=== PATIENT | male | born 1945 | race Caucasian/White ===

== ENCOUNTER 2020-10-16 22:48 | Inpatient (IN) | payer OTHER, SELFPAY ==
[~2020-10-16] VITALS: Ht 177.8 cm; Wt 70.3 kg
[2020-10-16 22:48] VITALS: BP 149/85
--- NOTE | 2020-10-16 22:50 | NUR ---
FARHAT PINA. TAKEN TO BED #7
[2020-10-16] MEDS ORDERED: IBUP-1842 PO (23:04)
[2020-10-16] MEDS ORDERED: OMEP20TC10 PO (23:04)
[2020-10-16] MEDS ORDERED: ATI.5 PO (23:04)
[2020-10-16] MEDS ORDERED: LACT1CAP59 PO (23:04)
[2020-10-16] MEDS ORDERED: KETO10TA2 PO (23:04)
[2020-10-16] MEDS ORDERED: TOR15I PO (23:04)
[2020-10-16] MEDS ORDERED: ACET-8386 PO (23:04)
[2020-10-16] MEDS ORDERED: APIX2.5 PO (23:04)
[2020-10-16] MEDS ORDERED: CEFT1VIA7 IM (23:04)
[2020-10-16] MEDS ORDERED: ROC2I IM (23:04)
[2020-10-16] MEDS ORDERED: ATOR10TA PO (23:04)
--- NOTE | 2020-10-16 23:20 | NUR ---
JACKSON CATHETER IN PLACE SHIP FASTENER. SMALL AMOUNT PUSSY DRAINAGE NOTED IN BAG. F/C D/C'D AND COPIUS AMOUNTS PURULENT DISCHARGE/ URINE PASSED, INCONTINENT. NEW JACKSON INSERTED WITH IMMEDIATE RETURN OF APPROX 500 CC PURULENT URINE RETURNED. PT STATES' "I FEEL BETTER"
--- NOTE | 2020-10-16 23:30 | NUR ---
FELISHA SWAB OBTAINED AND SENT TO LAB WITH UA
--- NOTE | 2020-10-16 23:30 | NUR ---
VERY LARGE DECUBITUS TO COCCYX NOTED WITH PURULENT DRAINAGE. PHOTOS TAKEN. ADDITIONALLY LEFT HEEL NECROTIC, NO SKIN BREAK NOTED, PHOTOS TAKEN
[2020-10-16] MEDS ORDERED: DEXT 5% /NACL 0.9% 1,000 ML IV ONE (23:55)
[2020-10-16] MEDS ORDERED: NACL 0.9% 1,000 ML IV ONE (23:55)
--- NOTE | 2020-10-17 00:06 | NUR ---
EKG PERFORMED AT BEDSIDE. EKG READS SINUS TACHYCARDIA @ 111
[2020-10-17] MEDS ORDERED: cefTRIAXone 1,000 MG VIAL ONE (00:19)
[2020-10-17 00:28] LABS: BASOPHILS % (AUTO) 0.2 % (0.0-2.0); HEMATOCRIT 39.3 % (36-52); HEMOGLOBIN 12.6 g/dL (12.0-18.0); LYMPHOCYTES # (AUTO) 0.6 K/uL (2.0-11.5); LYMPHOCYTES % (AUTO) 2.8 % (20.5-51.1); MEAN CORPUSCULAR HEMOGLOBIN 29 pg (27-31); MEAN CORPUSCULAR HGB CONC 32 g/dL (33-37); MEAN CORPUSCULAR VOLUME 90.3 fL (80-94); MONOCYTES # (AUTO) 1.3 K/uL (0.8-1.0); MONOCYTES % (AUTO) 6.1 % (1.7-9.3); NEUTROPHILS # (AUTO) 19.9 K/uL (1.8-7.7); NEUTROPHILS % (AUTO) 90.9 % (42.2-75.2); PLATELET COUNT (AUTO) 433 K/uL (140-450); RED BLOOD CELL COUNT(AUTO) 4.35 MIL/uL (4.20-6.10); RED CELL DISTRIBUTION WIDTH 16.1 % (11.6-13.7); WHITE BLOOD COUNT (AUTO) 21.9 K/uL (4.8-10.8)
[2020-10-17 00:44] LABS: ALBUMIN 2.6 g/dL (3.4-5.0); ANION GAP 19.5 (8-16); ASPARTATE AMINOTRANSFERASE 23 U/L (15-37); CARBON DIOXIDE 24.4 mmol/L (21-32); CHLORIDE 99 mmol/L (98-107); CREATININE 2.8 mg/dL (0.6-1.3); GLUCOSE 162 mg/dL (74-106); POTASSIUM 5.9 mmol/L (3.5-5.1); SODIUM SERUM 137 mmol/L (136-145); TOTAL BILIRUBIN 0.5 mg/dL (0.0-1.0)
[2020-10-17 00:47] LABS: UREA NITROGEN, BLOOD 78 mg/dL (7-18)
[2020-10-17] MEDS ORDERED: INSULIN REGULAR, HUMAN 100 UNIT/ML VIAL IVP ONE (00:50)
[2020-10-17] MEDS ORDERED: DEXTROSE 50% 50 ML SYR IVP ONE (00:50)
[2020-10-17] MEDS ORDERED: CALCIUM GLUCONATE 10% 1000 MG/10 ML VIAL IVP ONE (00:50)
[2020-10-17] MEDS ORDERED: NACL 0.9% 1,000 ML IV ONE ×2 (00:50)
[2020-10-17 00:52] LABS: APPEARANCE,URINE CLEAR (CLEAR); BILIRUBIN,URINE NEGATIVE (NEGATIVE); BLOOD, URINE 3+ (NEGATIVE); COLOR,URINE YELLOW (YELLOW); LEUKOCYTE ESTERASE ,URINE 3+ (NEGATIVE); NITRITE, URINE POSITIVE (NEGATIVE); PH,URINE >=9.0 (5.0-9.0); UGLUCOSE NEGATIVE (NEGATIVE)
[2020-10-17 01:09] LABS: RBC,URINE 0-5 /HPF (0-5); WBC,URINE TOO MANY TO COUNT /HPF (0-5)
--- NOTE | 2020-10-17 02:00 | NUR ---
IS AWAKE , ALERT, WATER GIVEN AND ASSISTED WITH POSITIONING
[2020-10-17] MEDS ORDERED: ACETAMINOPHEN EXTRA STRENGTH 500 MG TAB PO ONE (02:05)
[2020-10-17] MEDS: NACL 0.9% 1,000 ML IV SCH ×3 (03:00→23:00)
--- NOTE | 2020-10-17 04:15 | NUR ---
REPORT CALLED TO ARNOL GALVEZ
--- NOTE | 2020-10-17 04:50 | NUR ---
RECEIVED REPORT FROM ER NURSE FOR CONTINUITY OF CARE. PT ARRIVED TO UNIT VIA GURNEY. PT IS AWAKE AND ALERT, A&OX4. ON 4L O2 NC WITH BREATHING UNLABORED. O2 SAT IS 98%. VS STABLE. SR ON TELE MONITORING. JACKSON CATHETER IN PLACE WITH CLEAR STRAW COLOR URINE PRESENT. BEDBOUND, GENERALIZED WEAKNESS. SKIN IS WARM AND DRY. WOUND ON LEFT HEEL, NECROTIC TISSUE. WOUND ON SACRAL REGION WITH OPTIFOAM IN PLACE. IV IS IN THE LEFT FOREARM 22 GAUGE AND RIGHT WRIST 20 GAUGE RUNNING NS AT 100 ML PER HOUR PER ORDER. RAPID COVID NEGATIVE. PLAN OF CARE DISCUSSED. PT IS STABLE AT THIS TIME. WILL CONTINUE TO MONITOR. FALL PRECAUTIONS IN PLACE.
--- NOTE | 2020-10-17 04:50 | NUR ---
TRANSFERED TO [facility]IA [facility], ATTACHED TO TRANSPORT MONITOR.
[2020-10-17 04:53] VITALS: BP 96/60
--- NOTE | 2020-10-17 06:10 | NUR ---
MESSAGED DR. BURGESS TO ASK HIM FOR THE PT'S DIET ORDER AND CODE STATUS. ALSO INFORMED HIM THAT POTASSIUM LAB HAS NOT BEEN DRAWN SINCE THE PT WAS GIVEN MEDICATION TO LOWER POTASSIUM. WILL WAIT FOR RESPONSE.
--- NOTE | 2020-10-17 06:45 | NUR ---
DR. BURGESS RESPONDED TO MESSAGE AND ORDERED BMP, ROUTINE THIS AM.
--- NOTE | 2020-10-17 07:05 | NUR ---
ENDORSED PT TO DAY SHIFT NURSE FOR CONTINUITY OF CARE. PT IS STABLE AT THIS TIME. PLAN OF CARE DISCUSSED.
--- NOTE | 2020-10-17 07:10 | NUR ---
RECEIVED BEDSIDE ENDORSEMENT FROM NIGHTSMTFT NURSE FOR CONTINUITY OF CARE.
[2020-10-17 07:51] LABS: ANION GAP 11.2 (8-16); CARBON DIOXIDE 27.4 mmol/L (21-32); CHLORIDE 104 mmol/L (98-107); CREATININE 2.4 mg/dL (0.6-1.3); GLUCOSE 146 mg/dL (74-106); POTASSIUM 4.6 mmol/L (3.5-5.1); SODIUM SERUM 138 mmol/L (136-145)
[2020-10-17 07:56] LABS: UREA NITROGEN, BLOOD 77 mg/dL (7-18)
[2020-10-17 08:00] VITALS: BP 116/70
[2020-10-17] MEDS ORDERED: POTASSIUM CHLORIDE 40 MEQ, LIDOCAINE MPF 1% 25 MG in NACL 0.9% 250 ML IV PRN (08:15)
[2020-10-17] MEDS ORDERED: ZOLPIDEM 5 MG TAB PO PRN (08:15)
[2020-10-17] MEDS ORDERED: ONDANSETRON 4 MG/2 ML VIAL IM/IVP PRN (08:15)
[2020-10-17] MEDS ORDERED: guaiFENesin DM 200/20 MG-10 ML 10 ML UDC PO PRN (08:15)
[2020-10-17] MEDS ORDERED: DOCUSATE SODIUM 100 MG GELCAP PO PRN (08:15)
[2020-10-17] MEDS ORDERED: ACETAMINOPHEN 325 MG TAB PO PRN (08:15)
--- NOTE | 2020-10-17 08:58 | NUR ---
FNS CONSULT RECEIVED FOR WOUNDS/PRESSURE INJURIES AND FNS REFERRAL RECEIVED FOR REFUSE TO EAT >3 DAYS, DYSPHAIGA, AND PRESSURE INJURY. PATIENT HAS BEEN SCREENED AND CATEGORIZED HIGH NUTRITION RISK. PATIENT WILL BE SEEN WITHIN 1-2 DAYS OF ADMISSION. 10/17/20-10/18/[address]
[2020-10-17 09:07] LABS: PROTHROMBIN TIME 10.9 secs (10.8-13.4)
[2020-10-17] MEDS ORDERED: CRUSHER, PILL MC ONE (09:09)
[2020-10-17] MEDS: PANTOPRAZOLE 40 MG TABEC PO SCH (09:13)
[2020-10-17] MEDS: APIXABAN 2.5 MG TAB PO SCH ×2 (09:13→21:24)
[2020-10-17] MEDS: DEXT 5% /NACL 0.9% 1,000 ML IV SCH ×2 (09:13→17:30)
[2020-10-17 09:18] LABS: CHOL/HDL RATIO 3.9 (1-4.5); FREE T4 (FREE THYROXINE) 1.4 ng/dL (0.76-1.46); MAGNESIUM 2.5 mg/dL (1.8-2.4); PHOSPHORUS 5.6 mg/dL (2.5-4.9); THYROID STIMULATING HORMONE 1.99 uIU/mL (0.34-3.74)
--- NOTE | 2020-10-17 09:54 | NUR ---
SOCIAL WORK NOTE: Patient's Orientation Unable To Assess Information Provided By RUTH ANN DESHPANDE - SIGNIFICANT OTHER/POA Comments SW WAS UNABLE TO MEET PATIENT AT BEDSIDE. SW COMPLETED ASSESSMENT WITH PATIENT'S SIGNIFICANT OTHER. PER RUTH ANN, PATIENT LIVES AT [facility] [address]. Speech Pathologist Assistant, Realtionship and Phone Number RUTH ANN CHARLEE SIGNIFICANT OTHER/POA [phone] Healthcare Power of Retort Feeder Ground Bone Yes Does Patient Have a POLST No Identifying Problems No Social Work Triggers Is A Social Work Consult Needed No Mandate Report Filed No Explanation Of Identifying Problems PATIENT IS A 75-YEAR-OLD MALE ADMITTED FOR HYPERKALEMIA AND FAILURE TO THRIVE. PATIENT HAS PMHX OF BPH, GW, AND ANXIETY. PATIENT WAS ADMITTED FROM [facility]. [facility] Pre-Admission Level Of Functioning Status Independent/Ambulatory Level Of Functioning Comment RUTH ANN STATED PATIENT IS INDEPENDENT AT BASELINE. Prior Resources/Services Used In Last 12 Months SNF Rehab/Skilled Prior Resources/Service Comments PATIENT IS SKILLED. Prior DME No Prior DME Used Dialysis Comments N/A Living Situation Lives W/Significant Other Patient Had Caregiver No Home Support No Caregiver Issues Financial Issues No Known Financial Issue Referral To The Financial Counselor Needed No Factors/Needs No D/C Needs Identified Pt/Rep Participated In Discharge Plan Yes Patient/Family Agress With Discharge Plan Yes Discharge Plan Comments TENTATIVE DISCHARGE PLAN IS FOR PATIENT TO RETURN HOME AFTER DISCHARGE. DC Plan Status Initiated
--- NOTE | 2020-10-17 10:45 | NUR ---
WOUND CARE EVALUATION NOTE: SKIN ASSESSMENT DONE ON THIS 75 Y/O PT. ADMITTED WITH INFECTED PRESSURE INJURY WOUND TO SACRALCOCCYX AND LEFT HEEL UN-STAGEABLE PRESSURE INJURY. PT. IS AWAKE,AAX3. C/O PAIN 3/10 WHILE TURNING AND REPOSITION, NON-SPECIFIC LOCATION. PT. SKIN WARM AND DRY. POOR SKIN TURGOR, UPPER AND LOWER EXTREMITIES MULTIPLE DRY SCABS, INCONTINENT OF BOWEL X1 DURING ASSESSMENT. F/C PATENT, POC DISCUSSED WITH PRIMARY RN AND PT. PT. VERBALIZES UNDERSTANDING. POC DISCUSSED WITH DR. BURGESS AND RECOMMEND SURGEON CONSULT AND DEBRIDEMENT. COMORBIDITIES RELATED TO DELAY WOUND HEALING, FURTHER SKIN BREAKS INFECTION, HYPOXEMIC DECREASE TISSUE PERFUSION, DECREASE MOBILITY AND FUNCTIONAL ABILITIES AND HOB ELEVATED THE MAJORITY OF TIMES DUE TO MEDICAL REASONS. INTEGUMENTARY: -INFECTED PRESSURE INJURY UN-STAGEABLE TO SACRALCOCCYX [id number] WOUND 100% BROWN SLOUGH TISSUE, MODERATE AMOUNT PURULENT DRAINAGE, FOUL ODOR, WOUND EDGE FLAT, ERENDIRA WOUND SKIN DTI AND TOWARD 1 OCLOCK DIRECTION ERENDIRA-WOUND 1.5X1CM DRY BROWN WOUND BED. ERENDIRA WOUND DTI FURTHER DAMAGE INDICATED. -PRESSURE INJURY UN-STAGEABLE LEFT MEDIAL HEEL 2X3 CM DARK BROWN MUSHY SKIN. LEFT LATERAL HEEL 3X3CM 100% BLACK STABLE NECROTIC TISSUE, ERENDIRA-WOUND SKIN DRY DTI IRREGULAR SHAPE FURTHER DAMAGE INDICATED RECOMMENDATIONS -CLEANSE SACRALCOCCYX WOUND WITH NS, PAT DRY, PACK WITH SILVER ALGINATE DRESSING AND COVER WITH DRY DRESSING OD AND PRN IF SOILING - CLEANSE LEFT MEDIAL AND LATERAL HEEL WOUND WITH NS, PAT DRY, APPLY SOAKED BETADINE SO. 4X4 GAUZES AND WRAP WITH KERLIX ROLLS QD AND PRN IF SOILING -APPLY HYDRAGUADR TO UPPER AND LOWER EXTREMITIES BID AND PRN IF SOILING -TURN AND REPOSITION PATIENT Q 2H -ASSESS AND MONITOR SKIN CONDITION DURING POSITION CHANGE -OFFLOAD BILATERAL HEELS BY PLACING PILLOWS UNDER CALVES AT ALL TIMES, UNLESS OTHERWISE CONTRAINDICATED -PRESSURE REDISTRIBUTION SURFACE THERAPY -KEEP SKIN CLEAN AND DRY AT ALL TIMES. PLEASE CONTACT WOUND CARE NURSE FOR ANY QUESTION AND CHANGE OF WOUND CONDITION.
--- NOTE | 2020-10-17 11:48 | NUR ---
HOURLY ROUNDING PERFORMED. PATIENT IS RESTING IN BED. VISIBLE RISE AND FALL OF CHEST NOTED. NO SIGNS OF DISTRESS OR DISCOMFORT. SAFETY MEASURES IN PLACE. WILL CONTINUE TO MONITOR.
--- NOTE | 2020-10-17 11:53 | NUR ---
RECOMMENDATIONS FOR MULTIVITAMIN AND VITAMIN C [address] BURGESS[address] RECEIVED VORB FOR MULTIVITAMIN AND VITAMIN C.
[2020-10-17 12:00] VITALS: BP 134/74
--- NOTE | 2020-10-17 13:15 | NUR ---
ASSISTED PATIENT W/ CALLING GIRLFRIEND RUTH ANN .
--- NOTE | 2020-10-17 13:43 | NUR ---
10/17/20 RD INITIAL ASSESSMENT COMPLETED PLEASE REFER TO NUTRITION ASSESSMENT UNDER CARE ACTIVITY FOR ESTIMATED NUTRITIONAL NEEDS. 1. CONTINUE PUREE RENAL DIET TOLERATED 2. RECOMMEND ENSURE TID 3. RECOMMEND MULTIVITAMIN AND VITAMIN C 500 MG DAILY 4. RECOMMEND SWALLOW EVALUATION 5. RD TO FOLLOW-UP 2-3 DAYS, HIGH RISK FATOU VARGAS RD
--- NOTE | 2020-10-17 14:20 | NUR ---
DC PLANNIN YRS OLD MALE PATIENT WAS ADMITTED FROM [facility] WITH A DX OF FAILURE TO THRIVE AND HYPERKALEMIA. PT HAS A HX OF BPH, URINARY RETENTION RECURRENT KIDNEY STONE, DYSLIPIDEMIA AND LARGE DECUBITUS ULCER. CXR SHOWED NO ACUTE CARDIOPULMONARY DISEASE. RENAL ULTRASOUND NO HYDRONEPHROSIS. ABDOMINAL X-RAY SHOWED LARGE VOLUME OF STOOL WITHIN THE RECTUM. RAPID COVID TEST NEGATIVE. URINE CULTURE PENDING. ADMINISTERED IVF, IV ABX ROCEPHIN AND CONTINUED HOME MEDS. CONSULTED WITH GI, NEPHRO, UROLOGY AND SURGEON. DC PLAN TO GO BACK TO [place] WHEN STABLE. CM TO FOLLOW Addendum: 10/18/20 at 1445 by Alice Ch RN DC PLANNING: RACHEL SHANKS [phone] SPOKE WITH JEROME MOUSTAPHA STATED OK TO STAY AT [facility] AND APPROVED FOR THE PROCEDURE OF DEBRIDEMENT OF SACRAL WOUND, G-TUBE PLACEMENT AND EGD COLONOSCOPY. SHE PROVIDE AUTH# [id number] . CM TO FOLLOW Addendum: 10/22/20 at 1422 by Fely Oliver CM DC GARMENT MANUFACTURING SUPERVISOR: SPOKE TO PATIENTS RUTH ANN RIOS [phone] TO FOLLOW UP ON PLAN OF DISCHARGE. SHE SIGNED WITH [facility] [phone] AND WOULD LIKE FOR PATIENT TO COME HOME. Addendum: 10/22/20 at 1433 by Alice Ch RN DC PLANNING: RECEIVED A CALL FROM [facility] SPOKE WITH YUDY [phone] STATED SHE SPOKE WITH PT'S FAMILY AND THEY AGREED TO TAKE PATIENT HOME WITH HOSPICE. WILL CONTACT FAMILY. CM TO FOLLOW Addendum: 10/22/20 at 1529 by Fely Oliver CM DC GARMENT MANUFACTURING SUPERVISOR: RECEIVED A PHONE CALL FROM [facility] [employer] [employer] DIRECT[employer] TIME FOR PATIENT IS 5:00 PM BY [facility] TRANSPORTATION Addendum: 10/22/20 at 1545 by Fely Oliver CM CAITLYN GARMENT MANUFACTURING SUPERVISOR: PATIENT IS STILL IN PROCEDURE CHARGE NURSE AND ARNOL BLOCK ASKED IF TRANSPORTATION COULD BE PUSHED BACKED. CONTACTED MELQUIADES AT [facility] THEY WERE ABLE TO PUSH TIME BACK TO 7:30 PM. NOTIFIED ARNOL BLOCK
[2020-10-17] MEDS: ALGINATE DRESSING MC SCH (15:00)
[2020-10-17 16:00] VITALS: BP 134/77
[2020-10-17] MEDS: LACTULOSE 20 GM/30 ML UDC PO SCH ×3 (17:18→21:22)
[2020-10-17] MEDS: SENNA 8.6 MG TAB PO SCH (17:18)
--- NOTE | 2020-10-17 17:30 | NUR ---
ADMINISTERED PRESCRIBED MEDS PER MD ORDER. PATIENT TOLERATED WELL. MEDICATION EDUCATION PROVIDED. PATIENT VERBALIZED UNDERSTANDING. SAFETY MEASURES IN PLACE. WILL CONTINUE TO MONITOR.
--- NOTE | 2020-10-17 19:21 | NUR ---
ENDORSED PATIENT TO NIGHTSHIFT NURSE FOR CONTINUITY OF CARE.
--- NOTE | 2020-10-17 19:25 | NUR ---
RECEIVED BEDSIDE REPORT FROM DAY SHIFT NURSE FOR CONTINUITY OF CARE. PT IS AWAKE AND ALERT, A&OX4. ON 2L O2 NC WITH BREATHING UNLABORED. SR ON TELE MONITORING. JACKSON CATH IS IN PLACE. SKIN IS WARM AND DRY. LEFT HEEL NECROTIC TISSUE AND SACRAL OPEN WOUND PRESENT. DRESSING DRY AND INTACT. IV IS IN THE RIGHT WRIST 20 GAUGE RUNNING D5 NS AT 120 ML PER HOUR PER ORDER. FALL PRECAUTIONS AND STANDARD PRECAUTIONS IN PLACE. PLAN OF CARE DISCUSSED.
[2020-10-17 20:00] VITALS: BP 118/72
--- NOTE | 2020-10-17 21:22 | NUR ---
ADMINISTERED MEDICATIONS TO PT. HE WAS ABLE TO SWALLOW PILLS AND DRINK WATER WITH MEDICATION. NO DISTRESS NOTED. OFFERED PT ENSURE TO DRINK OR A SNACK BUT HE REFUSED. PT STATES HE IS NOT HUNGRY RIGHT NOW. PT IS GOING BACK TO SLEEP. WILL CONTINUE TO MONITOR.
[2020-10-17] MEDS: ATORVASTATIN 20 MG TAB PO SCH (21:23)
--- NOTE | 2020-10-17 23:30 | NUR ---
ROUNDED ON PT. HE IS ASLEEP IN HIGH FOWLERS POSITION. BLANKETS ARE IN PLACE. CHEST RISE AND FALL IS SYMMETRICAL. NO RESPIRATORY DISTRESS NOTED. PT IS ON 2L O2 NC. IV FLUIDS ARE PATENT AND INFUSING ORDERED. CALL LIGHT IS WITHIN REACH.
[2020-10-18] VITALS: BP 124/77
[2020-10-18] MEDS: DEXT 5% /NACL 0.9% 1,000 ML IV SCH ×2 (00:33→10:08)
[2020-10-18] MEDS: HYDRAGUARD CREAM TP SCH ×2 (00:34→12:17)
--- NOTE | 2020-10-18 01:30 | NUR ---
PT IS SLEEPING. NO RESPIRATORY DISTRESS NOTED. BREATHING IS REGULAR AND UNLABORED. NO SOB OR PAIN AT THIS TIME. IV IS PATENT AND INFUSING FLUIDS ORDERED. BED IS IN THE LOWEST POSITION. JACKSON CATH IS DRAINING CLOUDY, YELLOW URINE. WILL CONTINUE TO MONITOR.
--- NOTE | 2020-10-18 03:30 | NUR ---
PT'S LINENS WERE CHANGED AND PT WAS REPOSITIONED. PADDED BOOTS IN PLACE. DRESSINGS ON LEFT FOOT AND SACRAL ARE DRY AND INTACT. NO DISTRESS NOTED. BREATHING IS UNLABORED AND PT IS RESPONDING APPROPRIATELY. A&OX4. BED ALARM ON.
[2020-10-18 04:00] VITALS: BP 124/56
[2020-10-18] MEDS: HYDROcodone/APAP 7.5/325 MG 1 TAB PO PRN ×3 (05:12→20:48)
--- NOTE | 2020-10-18 05:12 | NUR ---
PT IS MOANING AND CRYING, STATING HE HAS PAIN ALL OVER HIS BODY. GENERALIZED PAIN AT A SCALE OF 6/10 AND ACHING. PT WAS GIVEN NORCO FOR PAIN. MEDICATION EDUCATION WAS PROVIDED AND PT VERBALIZED UNDERSTANDING. WILL CONTINUE TO MONITOR.
[2020-10-18 06:16] LABS: BASOPHILS % (AUTO) 0.2 % (0.0-2.0); EOSINOPHILS # (AUTO) 0.2 K/uL (0-0.4); EOSINOPHILS % (AUTO) 0.9 % (0.0-4.0); HEMATOCRIT 29.8 % (36-52); HEMOGLOBIN 9.5 g/dL (12.0-18.0); LYMPHOCYTES # (AUTO) 1.3 K/uL (2.0-11.5); LYMPHOCYTES % (AUTO) 6.9 % (20.5-51.1); MEAN CORPUSCULAR HEMOGLOBIN 29 pg (27-31); MEAN CORPUSCULAR HGB CONC 32 g/dL (33-37); MEAN CORPUSCULAR VOLUME 90.6 fL (80-94); MONOCYTES # (AUTO) 1.3 K/uL (0.8-1.0); MONOCYTES % (AUTO) 6.7 % (1.7-9.3); NEUTROPHILS # (AUTO) 16.5 K/uL (1.8-7.7); NEUTROPHILS % (AUTO) 85.3 % (42.2-75.2); PLATELET COUNT (AUTO) 312 K/uL (140-450); RED BLOOD CELL COUNT(AUTO) 3.29 MIL/uL (4.20-6.10); RED CELL DISTRIBUTION WIDTH 16.1 % (11.6-13.7); WHITE BLOOD COUNT (AUTO) 19.3 K/uL (4.8-10.8)
--- NOTE | 2020-10-18 07:25 | NUR ---
HANDOFF RECEIVED FROM SENIOR BUSINESS ANALYST RN AT BEDSIDE. PT IS ALERT AND ORIENTED X 4. PT IS ON 2 L NC, RESPIRATIONS EVEN AND UNLABORED, NO SIGNS OF RESPIRATORY DISTRESS. PT IS SR ON THE MONITOR. FOR ACCESS PT HAS R WRIST 20 G, WITH D5NS RUNNING AT 120 ML/HR. PT IS ON REGULAR PUREE DIET AT THIS TIME. JACKSON CATHETER IS IN PLACE, HANGING TO GRAVITY, DRAINING CLOUDY YELLOW URINE WITH SEDIMENT. PT HAS SACRAL AND L HEEL WOUND, BOTH HAVE DRESSINGS THAT ARE DRY AND INTACT. HOB IS 30 DEG WITH BED IN LOW, LOCKED POSITION. CALL LIGHT IS WITHIN REACH, SAFETY MEASURES IN PLACE.
--- NOTE | 2020-10-18 07:25 | NUR ---
ENDORSED PT TO DAY SHIFT NURSE FOR CONTINUITY OF CARE. PT IS STABLE AT THIS TIME. PLAN OF CARE DISCUSSED.
[2020-10-18 07:29] LABS: ANION GAP 11.1 (8-16); CARBON DIOXIDE 25.5 mmol/L (21-32); CHLORIDE 108 mmol/L (98-107); CREATININE 1.5 mg/dL (0.6-1.3); GLUCOSE 152 mg/dL (74-106); POTASSIUM 3.6 mmol/L (3.5-5.1); SODIUM SERUM 141 mmol/L (136-145); UREA NITROGEN, BLOOD 56 mg/dL (7-18)
[2020-10-18 08:00] VITALS: BP 143/77
[2020-10-18 08:08] LABS: T4 (THYROXINE) 7.1 ug/dL (4.5-12.0)
[2020-10-18] MEDS: SENNA 8.6 MG TAB PO SCH ×3 (08:57→17:41)
[2020-10-18] MEDS: ASCORBIC ACID 500 MG TAB PO SCH (08:57)
[2020-10-18] MEDS: PANTOPRAZOLE 40 MG TABEC PO SCH (08:57)
[2020-10-18] MEDS: LACTULOSE 20 GM/30 ML UDC PO SCH ×6 (08:57→20:34)
[2020-10-18] MEDS: MULTIVITAMIN/MINERALS 1 TAB PO SCH (08:57)
[2020-10-18] MEDS ORDERED: LACTULOSE 20 GM/30 ML UDC PO SCH (09:00)
[2020-10-18] MEDS: APIXABAN 2.5 MG TAB PO SCH (09:00)
--- NOTE | 2020-10-18 09:33 | NUR ---
MEDICATIONS ADMINISTERED PER ORDER, PT TOLERATED WELL. PRN NORCO ADMINISTERED DUE TO PT COMPLAINT OF GENERALIZED PAIN. SEE PAIN ASSESSMENT. MEDICATIONS CRUSHED AND ADMINISTERED WITH APPLESAUCE. NO SIGNS OF CHOKING OR DISTRESS ONLY ABLE TO HAVE ABOUT 1/3 OF LACTULOSE. PT REFUSING BREAKFAST AT THIS TIME. PT REMINDED TO USE CALL LIGHT IF ASSISTANCE IS NEEDED, VERBALIZED UNDERSTANDING.
[2020-10-18 11:45] VITALS: BP 149/86
[2020-10-18] MEDS: GAUZE TP SCH (12:16)
--- NOTE | 2020-10-18 12:34 | NUR ---
PT REFUSING LACTULOSE AND SENNA AT THIS TIME. EDUCATED PT ON BENEFITS, BUT PT STILL REFUSED STATING "I AM NOT UP TO IT RIGHT NOW." WOUND CARE PROVIDED.
--- NOTE | 2020-10-18 13:36 | NUR ---
PT IS RESTING NOW AND NO SIGN OF DISTRESS NOTED
[2020-10-18] MEDS ORDERED: fentaNYL citrate 0.05 MG/ML VIAL ONE (14:19)
[2020-10-18] MEDS ORDERED: MIDAZOLAM 5 MG/5 ML VIAL ONE (14:19)
[2020-10-18] MEDS: MUPIROCIN CA NASAL 2% 1GM TUBE NS SCH (14:30)
[2020-10-18] MEDS: CHLORHEXADINE GLUC 2% CLOTH TP SCH (14:30)
[2020-10-18] MEDS: ALGINATE DRESSING MC SCH (14:31)
[2020-10-18] MEDS ORDERED: MAGNESIUM CITRATE 300 ML BTL PO PRN (15:45)
[2020-10-18 16:00] VITALS: BP 144/77
--- NOTE | 2020-10-18 16:47 | NUR ---
PT CAME BACK FROM OR FOR A EGD AND PEG PLACEMENT, V/S STABLE.
[2020-10-18] MEDS ORDERED: bisacodyL 10 MG SUPP RC ONE (17:00)
[2020-10-18] MEDS ORDERED: MAGNESIUM CITRATE 300 ML BTL PO SCH (17:30)
--- NOTE | 2020-10-18 17:41 | NUR ---
PT WAS GIVEN THE SCHEDULED MEDICATIONS VIA PEG TUBE NOW.
[2020-10-18] MEDS: ERYTHROMYCIN 100 MG in NACL 0.9% 100 ML IV SCH ×2 (17:54→23:06)
--- NOTE | 2020-10-18 17:54 | NUR ---
PT WAS GIVEN IV ERYTHROMYCIN NOW.
[2020-10-18] MEDS ORDERED: fentaNYL citrate 0.05 MG/ML VIAL IVP ONE (18:05)
[2020-10-18] MEDS ORDERED: MIDAZOLAM 2 MG/2 ML VIAL IVP ONE (18:05)
[2020-10-18] MEDS ORDERED: MIDAZOLAM 2 MG/2 ML VIAL IVP SCH (18:30)
[2020-10-18] MEDS ORDERED: fentaNYL citrate 0.05 MG/ML VIAL IVP SCH (18:30)
--- NOTE | 2020-10-18 19:20 | NUR ---
ENDORSED PT TO UNHAIRER NURSEDOUG, FOR CONTINUITY OF CARE.
--- NOTE | 2020-10-18 19:21 | NUR ---
RECEIVED BEDSIDE REPORT FROM DAY RN. PT IS AWAKE AND ALERT, A&OX4. ON CONTACT ISOLATION FOR POSITIVE MRSA/NARES. RESPIRATIONS ARE EQUAL AND UNLABORED ON 2L NC. SR ON TELE MONITORING. JACKSON CATH IS IN PLACE DRAINING BY GRAVITY. SKIN IS WARM AND DRY. LEFT HEEL NECROTIC TISSUE AND SACRAL OPEN WOUND PRESENT. DRESSING DRY AND INTACT. IV IS IN THE RIGHT WRIST 20 [address]AU[address] SL. PT IS S/P EGD AND PEG PLACEMENT THIS AFTERNOON. PER DR CARLIN OK TO START TUBE FEEDING ORDER IS IN PLACE. WILL F/U WITH FNS FOR TUBE FEEDING. FALL PRECAUTIONS AND STANDARD PRECAUTIONS IN PLACE. PLAN OF CARE DISCUSSED. CALL LIGHT IS WITHIN REACH.
[2020-10-18 20:00] VITALS: BP 146/90
[2020-10-18] MEDS: ATORVASTATIN 20 MG TAB PO SCH (20:34)
--- NOTE | 2020-10-18 20:34 | NUR ---
PT OBSERVED LAYING IN BED PER PT TRYING TO SLEEP. VITAL SIGNS ARE WITHIN NORMAL LIMITS. CHRISTOPHER MEDICATIONS CRUSHED AND GIVEN VIA G-TUBE. TUBE FEEDING STARTED PER ORDERS. HOB ELEVATED. MED EDUCATION GIVEN. REINFORCEMENT NEEDED. ALL SAFETY MEASURES ARE IN PLACE. WILL CONTINUE TO MONITOR.
[2020-10-18] MEDS ORDERED: AMITRIPTYLINE 10 MG TAB PO SCH (21:00)
--- NOTE | 2020-10-18 22:11 | NUR ---
PATIENT OBSERVED IN BED APPEARS TO BE ASLEEP. CHEST RISE AND FALL NOTED. NO S/S OF DISTRESS. CALL LIGHT IS WITHIN REACH. WILL CONTINUE TO MONITOR.
[2020-10-19] VITALS: BP 124/67
--- NOTE | 2020-10-19 00:05 | NUR ---
VITAL SIGNS ARE WITHIN NORMAL LIMITS. ALL SAFETY MEASURES ARE IN PLACE. WILL CONTINUE TO MONITOR.
[2020-10-19] MEDS: HYDRAGUARD CREAM TP SCH ×2 (00:13→12:29)
--- NOTE | 2020-10-19 02:11 | NUR ---
ROUNDS MADE. PT OBSERVED LAYING IN BED APPEARS TO BE ASLEEP. CHEST RISE AND FALL NOTED. CALL LIGHT IS WITHIN REACH.
[2020-10-19 04:00] VITALS: BP 116/71
--- NOTE | 2020-10-19 04:10 | NUR ---
VITAL SIGNS ARE WITHIN NORMAL LIMITS. ALL SAFETY MEASURES ARE IN PLACE. WILL CONTINUE TO MONITOR.
[2020-10-19 05:35] LABS: BASOPHILS % (AUTO) 0.1 % (0.0-2.0); EOSINOPHILS % (AUTO) 0.2 % (0.0-4.0); HEMATOCRIT 30.8 % (36-52); HEMOGLOBIN 9.8 g/dL (12.0-18.0); LYMPHOCYTES # (AUTO) 1.1 K/uL (2.0-11.5); LYMPHOCYTES % (AUTO) 6.5 % (20.5-51.1); MEAN CORPUSCULAR HEMOGLOBIN 29 pg (27-31); MEAN CORPUSCULAR HGB CONC 32 g/dL (33-37); MEAN CORPUSCULAR VOLUME 90.6 fL (80-94); MONOCYTES # (AUTO) 0.7 K/uL (0.8-1.0); MONOCYTES % (AUTO) 4.1 % (1.7-9.3); NEUTROPHILS # (AUTO) 15.3 K/uL (1.8-7.7); NEUTROPHILS % (AUTO) 89.1 % (42.2-75.2); PLATELET COUNT (AUTO) 280 K/uL (140-450); RED CELL DISTRIBUTION WIDTH 16.2 % (11.6-13.7); WHITE BLOOD COUNT (AUTO) 17.2 K/uL (4.8-10.8)
[2020-10-19] MEDS: ERYTHROMYCIN 100 MG in NACL 0.9% 100 ML IV SCH ×3 (05:40→18:53)
[2020-10-19 05:41] LABS: ANION GAP 8.4 (8-16); CARBON DIOXIDE 26.4 mmol/L (21-32); CHLORIDE 109 mmol/L (98-107); CREATININE 1.3 mg/dL (0.6-1.3); GLUCOSE 186 mg/dL (74-106); POTASSIUM 3.8 mmol/L (3.5-5.1); SODIUM SERUM 140 mmol/L (136-145); UREA NITROGEN, BLOOD 38 mg/dL (7-18)
[2020-10-19 05:47] LABS: MAGNESIUM 1.9 mg/dL (1.8-2.4)
[2020-10-19] MEDS ORDERED: MAGNESIUM CITRATE 300 ML BTL PO SCH (06:00)
--- NOTE | 2020-10-19 07:32 | NUR ---
GAVE BEDSIDE REPORT TO DAY RN. PT ENDORSED IN STABLE CONDITION.
--- NOTE | 2020-10-19 07:35 | NUR ---
RECEIVED BEDSIDE REPORT FROM NIGHTSHIFT NURSE FOR CONTINUITY OF CARE.
[2020-10-19 08:00] VITALS: BP 131/72
[2020-10-19] MEDS: LACTULOSE 20 GM/30 ML UDC PO SCH ×5 (08:52→17:18)
[2020-10-19] MEDS: SENNA 8.6 MG TAB PO SCH ×3 (08:52→17:19)
[2020-10-19] MEDS: ASCORBIC ACID 500 MG TAB PO SCH (08:55)
[2020-10-19] MEDS: MULTIVITAMIN/MINERALS 1 TAB PO SCH (08:55)
--- NOTE | 2020-10-19 09:08 | NUR ---
ADMINISTERED PRESCRIBED MEDS PER MD ORDER. PATIENT TOLERATED WELL. MEDICATION EDUCATION PROVIDED, PATIENT VERBALIZED UNDERSTANDING. PATIENT LAYING IN BED, AWAKE AND ALERT. ASSISTED PATIENT W/ CALLING GIRLFRIEND RUTH ANN. PATIENT SHOWS NO SIGNS OF DISTRESS. PEG TUBE IN PLACE W/ 45 ML RESIDUALS, TOLERATING WELL. SAFETY MEASURES IN PLACE. WILL CONTINUE TO MONITOR.
--- NOTE | 2020-10-19 10:18 | NUR ---
PATIENT BEING SEEN BY MD, ASSISTED W/ TOILETING AND WOUND CARE. PATIENT TOLERATED WELL, SAFETY MEASURES IN PLACE. WILL CONTINUE TO MONITOR.
[2020-10-19 12:00] VITALS: BP 128/75
[2020-10-19] MEDS: GAUZE TP SCH (12:29)
--- NOTE | 2020-10-19 12:49 | NUR ---
ADMINISTERED PRESCRIBED MEDS PER MD ORDER. PATIENT TOLERATED WELL. PERFORMED WOUND CARE ON L HEEL. PATIENT TOLERATED TREATMENT W/ MILD PAIN. SAFETY MEASURES IN PLACE. WILL CONTINUE TO MONITOR.
--- NOTE | 2020-10-19 13:56 | NUR ---
SPOKE TO DR. BURGESS TO RECOMMEND GLUCERNA 1.2 @ 80 ML/HR WITH FREE WATER FLUSH OF 125 ML Q4H. RECEIVED TORB FOR GLUCERNA 1.2 @ 80 ML/HR, ADVANCE BY 20 ML/HR Q4H.
--- NOTE | 2020-10-19 14:21 | NUR ---
10/19/20 RD FOLLOW UP COMPLETED PLEASE REFER TO NUTRITION ASSESSMENT UNDER CARE ACTIVITY FOR ESTIMATED NUTRITIONAL NEEDS. 1. RECOMMEND CONTINUOUS ENTERAL FEEDING WITH GLUCERNA 1.2 @ 80 ML/HR. STAT AT 20 ML/HR AND ADVANCE BY 20 ML/HR Q4H -THIS WILL PROVIDE 1920 ML OF VOLUME, 2304 KCAL AND 115 GM OF PROTEIN, MEETING 100% OF ESTIMATED KCAL AND PROTEIN NEEDS 2. RECOMMEND FREE WATER FLUSH OF 125 ML Q4H 3. CONTINUE MVI WITH VITAMIN C TO PROMOTE WOUND HEALING 4. RD TO FOLLOW-UP 2-3 DAYS, HIGH RISK FATOU VARGAS RD
[2020-10-19] MEDS: MUPIROCIN CA NASAL 2% 1GM TUBE NS SCH (14:35)
[2020-10-19] MEDS: CHLORHEXADINE GLUC 2% CLOTH TP SCH (14:35)
[2020-10-19] MEDS: ALGINATE DRESSING MC SCH (15:37)
--- NOTE | 2020-10-19 15:39 | NUR ---
PATIENT R WRIST 20G FELL OUT. REPLACED W/ RAC 20G IV, LINE IS INTACT AND PATENT. PATIENT TOLERATED INSERTION WELL. SAFETY MEASURES IN PLACE. WILL CONTINUE TO MONITOR.
[2020-10-19 16:00] VITALS: BP 151/73
--- NOTE | 2020-10-19 17:29 | NUR ---
ADMINISTERED PRESCRIBED MEDS PER MD ORDER. PATIENT TOLERATED WELL. MEDICATION EDUCATION PROVIDED. PATIENT VERBALIZED UNDERSTANDING. SAFETY MEASURES IN PLACE. WILL CONTINUE TO MONITOR.
--- NOTE | 2020-10-19 18:53 | NUR ---
ADMINISTERED PRESCRIBED MEDS PER MD ORDER. PATIENT ASLEEP DURING ADMINISTRATION. SAFETY MEASURES IN PLACE. WILL CONTINUE TO MONITOR.
--- NOTE | 2020-10-19 19:27 | NUR ---
BEDSIDE ENDORSEMENT PROVIDED TO NIGHTSHIFT NURSE FOR CONTINUITY OF CARE.
--- NOTE | 2020-10-19 19:28 | NUR ---
RECEIVED BEDSIDE ENDORSEMENT FROM AM SHIFT RN. PT IS AOX3, ON 2L NC, O2 SAT WNL, NO DISTRESS, DENIES PAIN, W/ INDWELLING JACKSON CATH IN PLACE, W/ SACRAL OPEN WOUND ENDORSED AND LEFT HEEL NECROTIC TISSUE, SAFETY MEASURES IN PLACE, CONTACT PRECAUTION IN PLACE, PLAN OF CARE DISCUSSED, CALL LIGHT WITHIN REACH.
[2020-10-19 20:00] VITALS: BP 142/84
[2020-10-19] MEDS: AMITRIPTYLINE 25 MG TAB PO SCH (21:02)
[2020-10-19] MEDS: ATORVASTATIN 20 MG TAB PO SCH (21:03)
--- NOTE | 2020-10-19 21:12 | NUR ---
HOB ELEVATED, DUE MEDS GIVEN ORDERED, TOLERATED WELL, CALL LIGHT WITHIN REACH.
[2020-10-20] VITALS: BP 124/75
[2020-10-20] MEDS: ERYTHROMYCIN 100 MG in NACL 0.9% 100 ML IV SCH ×2 (00:09→06:00)
--- NOTE | 2020-10-20 00:09 | NUR ---
ERYTHROMYCIN IV GIVEN ORDERED, NO A/R NOTED, WILL CONTINUE TO MONITOR, CALL LIGHT WITHIN REACH.
[2020-10-20] MEDS: HYDRAGUARD CREAM TP SCH ×2 (01:08→12:45)
--- NOTE | 2020-10-20 02:00 | NUR ---
ASLEEP, RESPIRATION EVEN AND UNLABORED, NOTED CHEST RISE, CALL LIGHT WITHIN REACH.
[2020-10-20 04:00] VITALS: BP 131/70
--- NOTE | 2020-10-20 04:00 | NUR ---
V/S TAKEN, NO SOB, WILL CONTINUE TO MONITOR, CALL LIGHT WITHIN REACH.
[2020-10-20 05:42] LABS: HEMATOCRIT 29.8 % (36-52); HEMOGLOBIN 9.4 g/dL (12.0-18.0); MEAN CORPUSCULAR HEMOGLOBIN 29 pg (27-31); MEAN CORPUSCULAR HGB CONC 32 g/dL (33-37); MEAN CORPUSCULAR VOLUME 90.9 fL (80-94); PLATELET COUNT (AUTO) 271 K/uL (140-450); RED BLOOD CELL COUNT(AUTO) 3.28 MIL/uL (4.20-6.10); RED CELL DISTRIBUTION WIDTH 16.1 % (11.6-13.7); WHITE BLOOD COUNT (AUTO) 18.4 K/uL (4.8-10.8)
--- NOTE | 2020-10-20 06:05 | NUR ---
ERYTHROCIN IV GIVEN ORDERED, NO A/R NOTED, WILL CONTINUE TO MONITOR, PT ASLEEP, RESPIRATION EVEN AND UNLABORED.
[2020-10-20 06:12] LABS: ANION GAP 11.4 (8-16); CARBON DIOXIDE 22.4 mmol/L (21-32); CHLORIDE 110 mmol/L (98-107); CREATININE 1.1 mg/dL (0.6-1.3); GLUCOSE 107 mg/dL (74-106); SODIUM SERUM 141 mmol/L (136-145); UREA NITROGEN, BLOOD 28 mg/dL (7-18)
[2020-10-20 06:17] LABS: POTASSIUM 2.8 mmol/L (3.5-5.1)
--- NOTE | 2020-10-20 07:00 | NUR ---
PT STABLE, BEDSIDE ENDORSEMENT GIVEN TO AM SHIFT RN FOR CONTINUITY OF CARE. ALSO ENDORSED THAT I INFORMED REGARDING K 2.8, AWAITING ORDER. AM NURSE VERBALIZED OK.
--- NOTE | 2020-10-20 07:10 | NUR ---
RECEIVED REPORT AT BED SIDE FORM NIGHT NURSE.PATIENT IS ALERT AND ORANTED X4.RESPIRATION EVEN AND UNLABORED.PATIENT IS AT 2L NASAL CANULA.RAC 20G JACKSON CATHETER IN PLACE . REGULAR DIET.HE DENIES PAIN AT THIS TIME. CONTACT PRECAUTION IN PLACE.PLAN OF CARE DISCUSSED. HEAD OF BED ELEVATED . CALL LIGHT WITHIN REACH. PATIENT VERBALIZED UNDERSTANDING.
[2020-10-20 08:00] VITALS: BP 125/73
[2020-10-20 08:28] LABS: EOSINOPHILS % (MANUAL) 1 % (0-4); LYMPHOCYTES % (MANUAL) 11 % (20-46); MONOCYTES % (MANUAL) 6 % (5-12); MYELOCYTES % 1 % (0-0)
[2020-10-20] MEDS ORDERED: POTASSIUM CHLORIDE 20% 40 MEQ/15 ML UDC GT SCH ×2 (08:30→15:00)
--- NOTE | 2020-10-20 09:41 | NUR ---
TUBE FEEDING CLARIFIED WITH DR JENKINS. RECEIVED TELEPHONE ORDER TO RESUME FEEDING. GLUCERNA 1.2 GOAL 80ML/HR, ADVANCE BY 20ML Q4H, WATER FLUSH 125ML Q4H, HOLD IF TF >200ML RESUME IF <100 ML AFTER 1 HOUR. ORDER READ BACK CONFIRMED AND CARRIED OUT.
[2020-10-20] MEDS: MULTIVITAMIN/MINERALS 1 TAB PO SCH (09:55)
[2020-10-20] MEDS: ASCORBIC ACID 500 MG TAB PO SCH (09:55)
[2020-10-20] MEDS: SENNA 8.6 MG TAB PO SCH ×3 (09:55→17:33)
--- NOTE | 2020-10-20 09:55 | NUR ---
PATIENT SITTING UP IN BED EYES CLOSED AND ALERT. MORNING ROUTINE MEDICATIONS GIVEN VIA GTUBE. GTUBE IN PLACE VERIFIED WITH AIR BOLUS. RESIDUAL CHECK WITHOUT ANY RESIDUAL. RAC 20G INTACT AND PATENT. RESP EVEN AND UNLABORED ON 2LNC, O2SAT 100%. DENIED OF ANY DISCOMFORT AT THIS TIME. SKIN WARM TO TOUCH AND INTACT. LOWER LEFT LEG WRAPPED WITH KERLIX, PATIENT C/O PAIN UPON MOVEMENT. RIGHT HEEL ON PROTECTOR. PLAN OF CARE DISCUSSED, PATIENT VERBALIZED UNDERSTANDING. CALL LIGHT WITHIN REACH. WILL CONTINUE TO MONITOR.
[2020-10-20] MEDS: LACTULOSE 20 GM/30 ML UDC PO SCH ×3 (09:56→17:32)
[2020-10-20 12:00] VITALS: BP 145/85
[2020-10-20] MEDS: HYDROcodone/APAP 7.5/325 MG 1 TAB PO PRN (12:10)
[2020-10-20] MEDS: ERYTHROMYCIN ETHYLSUCCINATE SUSP 200 MG/5 ML UDC PO SCH ×3 (12:12→21:39)
[2020-10-20] MEDS: GAUZE TP SCH (12:45)
--- NOTE | 2020-10-20 12:46 | NUR ---
ROUTINE MEDICATIONS GIVEN VIA GTUBE. NORCO GIVEN FOR PAIN. FEEDING STARTED WITH GLUCERNA 1.2, STARTING WITH 20ML/HR WITH H2O FLUSH 125 Q4H. WILL INCREASE FEEDING Q2H TOLERABLE TO GOAL OF 80ML/HR. WOUND CARE PROVIDED. PATIENT TOLERATED WELL. CALL LIGHT WITHIN REACH. WILL CONTINUE TO MONITOR.
--- NOTE | 2020-10-20 14:03 | NUR ---
P.T. NOTES HOLD P.T. TX AT THIS TIME, FF UP WHEN ABLE; POTASSIUM=2.8
--- NOTE | 2020-10-20 14:06 | NUR ---
PATIENT LEFT TO CT, IN STABLE CONDITION.
[2020-10-20] MEDS ORDERED: SODIUM PHOSPHATE 118 ML ENEM RC PRN (14:15)
--- NOTE | 2020-10-20 14:26 | NUR ---
PATIENT CAME BACK FROM CT. ROUTINE MEDICATIONS GIVEN. RESP EVEN AND UNLABORED ON 2LNC. NO NOTED DISTRESS AT THIS TIME. CALL LIGHT WITHIN REACH. WILL CONTINUE TO MONITOR. Addendum: 10/20/20 at 1505 by Sasha Rivero RN DR NELSON IN HOUSE CAME TO BEDSIDE FOR ASSESSMENT. SACRAL DEBRIDEMENT DISCUSSED POSSIBLE FOR TOMORROW AT BEDSIDE. CONSENT OBTAINED. PATIENT VERBALIZED UNDERSTANDING.
[2020-10-20] MEDS: ALGINATE DRESSING MC SCH (14:36)
[2020-10-20] MEDS: CHLORHEXADINE GLUC 2% CLOTH TP SCH (14:36)
[2020-10-20] MEDS: MUPIROCIN CA NASAL 2% 1GM TUBE NS SCH (14:36)
--- NOTE | 2020-10-20 15:05 | NUR ---
DR HAYES AT BEDSIDE. GAVE ORDER TO GIVE KDUR 20MEQ VIA Amelox IncorporatedUBE X1. ORDER CARRIED OUT.
[2020-10-20 16:00] VITALS: BP 149/73
--- NOTE | 2020-10-20 17:40 | NUR ---
PATIENT IN BED SLEEPING, CHEST NOTED RISING. CALL LIGHT WITHIN REACH. WILL CONTINUE TO MONITOR.
--- NOTE | 2020-10-20 19:15 | NUR ---
ENDORSED PATIENT TO NIGHT NURSE. PATIENT IN STABLE CONDITION. IV ACCESS INSERTED TO LEFT FOREARM 20G USING ASEPTIC TECHNIQUE.
--- NOTE | 2020-10-20 19:16 | NUR ---
RECEIVED BEDSIDE ENDORSEMENT FROM AM SHIFT RN. PT IS AWAKE, ALERT ORIENTED X3, ON 2L NC, O2 SAT WNL, ON GT FEEDING TOLERATING WELL, SAFETY MEASURES IN PLACE, PLAN OF CARE DISCUSSED, CALL LIGHT WITHIN REACH.
[2020-10-20 20:00] VITALS: BP 152/73
[2020-10-20] MEDS: PIPERACILLIN/TAZOBACTAM 3.375 GM in DEXTROSE 5% 50 ML IV SCH (21:21)
[2020-10-20] MEDS: POTASSIUM CHLORIDE 20% 40 MEQ/15 ML UDC GT SCH (21:38)
[2020-10-20] MEDS: AMITRIPTYLINE 25 MG TAB PO SCH (21:39)
[2020-10-20] MEDS: ATORVASTATIN 20 MG TAB PO SCH (21:41)
--- NOTE | 2020-10-20 21:51 | NUR ---
HOB ELEVATED, CHECKED GT PLACEMENT, IN PLACE W 0 RESIDUAL. DUE MEDS GIVEN ORDERED, NO A/R NOTED, KEPT COMFORTABLE, CALL LIGHT WITHIN REACH.
[2020-10-21] VITALS: BP 130/66
--- NOTE | 2020-10-21 | NUR ---
V/S TAKEN, KEPT WARM AND COMFORTABLE, WILL CONTINUE TO MONITOR, CALL LIGHT WITHIN REACH.
[2020-10-21] MEDS: HYDRAGUARD CREAM TP SCH ×2 (01:29→13:43)
--- NOTE | 2020-10-21 02:44 | NUR ---
ASLEEP, O2 SAT 98% ON 2L NC, RESPIRATION EVEN AND UNLABORED, WILL CONTINUE TO MONITOR, CALL LIGHT WITHIN REACH.
[2020-10-21 04:00] VITALS: BP 147/76
--- NOTE | 2020-10-21 04:00 | NUR ---
V/S TAKEN, PERINEAL CARE RENDERED, TOLERATED WELL.
[2020-10-21] MEDS: PIPERACILLIN/TAZOBACTAM 3.375 GM in DEXTROSE 5% 50 ML IV SCH ×3 (05:20→21:22)
--- NOTE | 2020-10-21 05:23 | NUR ---
ZOSYN IVPB GIVEN ORDERED, NO A/R NOTED, CALL LIGHT WITHIN REACH.
[2020-10-21 05:35] LABS: HEMATOCRIT 29.6 % (36-52); HEMOGLOBIN 9.3 g/dL (12.0-18.0); MEAN CORPUSCULAR HEMOGLOBIN 29 pg (27-31); MEAN CORPUSCULAR HGB CONC 31 g/dL (33-37); MEAN CORPUSCULAR VOLUME 92.2 fL (80-94); PLATELET COUNT (AUTO) 279 K/uL (140-450); RED BLOOD CELL COUNT(AUTO) 3.21 MIL/uL (4.20-6.10); RED CELL DISTRIBUTION WIDTH 16.5 % (11.6-13.7); WHITE BLOOD COUNT (AUTO) 18.3 K/uL (4.8-10.8)
[2020-10-21 06:08] LABS: ANION GAP 12.8 (8-16); CARBON DIOXIDE 21.5 mmol/L (21-32); CHLORIDE 112 mmol/L (98-107); CREATININE 1.2 mg/dL (0.6-1.3); GLUCOSE 134 mg/dL (74-106); POTASSIUM 3.3 mmol/L (3.5-5.1); SODIUM SERUM 143 mmol/L (136-145); UREA NITROGEN, BLOOD 28 mg/dL (7-18)
[2020-10-21 06:22] LABS: BASOPHILS % (MANUAL) 0 % (0-2); EOSINOPHILS % (MANUAL) 3 % (0-4); LYMPHOCYTES % (MANUAL) 9 % (20-46); MONOCYTES % (MANUAL) 6 % (5-12)
--- NOTE | 2020-10-21 07:31 | NUR ---
PT STABLE, NO DISTRESS, ALL NEEDS ATTENDED, KEPT COMFORTABLE, BEDSIDE ENDORSEMENT GIVEN TO AM SHIFT RN.
--- NOTE | 2020-10-21 07:34 | NUR ---
RECEIVED PATIENT FROM NIGHT NURSE. PATIENT IN BED SLEEPING, CHEST NOTED RISING. HOB ELEVATED. NO NOTED DISTRESS AT THIS TIME. CONTACT PRECAUTION OBSERVED. LFA 20G SL. JACKSON IN PLACE. TUBE FEEDING WITH GLUCERNA 1.2, SAFETY MEASURES IN PLACE. CALL LIGHT WITHIN REACH. WILL CONTINUE TO MONITOR.
[2020-10-21 08:00] VITALS: BP 144/73
[2020-10-21] MEDS: POTASSIUM CHLORIDE 20% 40 MEQ/15 ML UDC GT SCH ×2 (09:41→20:39)
[2020-10-21] MEDS: LACTULOSE 20 GM/30 ML UDC PO SCH ×3 (09:41→17:38)
[2020-10-21] MEDS: MULTIVITAMIN/MINERALS 1 TAB PO SCH (09:42)
[2020-10-21] MEDS: ASCORBIC ACID 500 MG TAB PO SCH (09:42)
[2020-10-21] MEDS: SENNA 8.6 MG TAB PO SCH ×3 (09:42→17:38)
[2020-10-21] MEDS: ERYTHROMYCIN ETHYLSUCCINATE SUSP 200 MG/5 ML UDC PO SCH ×4 (09:49→22:19)
--- NOTE | 2020-10-21 09:50 | NUR ---
PATIENT IN BED AWAKE AND ALERT. MORNING ROUTINE MEDICATIONS GIVEN VIA GTUBE, RESIDUAL CHECK <5ML. FEEDING CONTINUES WITH GLUCERNA 1.2 @ 80ML/HR H2O 125ML Q4H. RFA 22G INTACT AND PATENT, TKO. JACKSON NOTED IN PLACE DRAINING YELLOW URINE. SKIN WARM TO TOUCH AND INTACT. SACRAL WOUND AND LEFT HEEL PRESSURE ULCER NOTED. DR NELSON PLAN OF DEBRIDEMENT POSSIBLE TODAY. PLAN OF CARE DISCUSSED, PATIENT VERBALIZED UNDERSTANDING. CALL LIGHT WITHIN REACH. WILL CONTINUE TO MONITOR
[2020-10-21 12:00] VITALS: BP 138/80
[2020-10-21] MEDS ORDERED: POTASSIUM CHLORIDE 20% 40 MEQ/15 ML UDC GT ONE (12:15)
[2020-10-21] MEDS ORDERED: VANCOMYCIN PER PHARMACY MC PRN (12:15)
--- NOTE | 2020-10-21 12:30 | NUR ---
DR CARLIN IN HOUSE FOR ASSESSMENT. RECEIVED INSTRUCTIONS TO STOP TUBE FEED AT 1600, START GOLYTELY AT 1700 AND FINISH BY 1999, GIVE MAG CITRATE AT 2100. POSSIBLE COLONOSCOPY TOMORROW. PATIENT MADE AWARE. WILL CONTINUE TO MONITOR.
[2020-10-21] MEDS: POTASSIUM CHL 20 MEQ/D5-1/2NS 1,000 ML IV SCH (13:34)
[2020-10-21] MEDS: CHLORHEXADINE GLUC 2% CLOTH TP SCH (13:43)
[2020-10-21] MEDS: GAUZE TP SCH (13:43)
[2020-10-21] MEDS: MUPIROCIN CA NASAL 2% 1GM TUBE NS SCH (13:43)
--- NOTE | 2020-10-21 14:21 | NUR ---
ROUTINE MEDICATIONS GIVEN VIA GTUBE, RESIDUAL CHECK <5ML. PATIENT TOLERATING FEEDING WELL. RESP EVEN AND UNLABORED ON 2L NC, O2SAT 99%. NO NOTED DISTRESS AT THIS TIME. PATIENT MADE AWARE OF POSSIBLE COLONOSCOPY TOMORROW WITH MUKUL MARAVILLA AT 1600 AND START GOLYTELY AT 1700. PATIENT VERBALIZED UNDERSTANDING. CALL LIGHT WITHIN REACH. WILL CONTINUE TO MONITOR
[2020-10-21] MEDS ORDERED: BOWEL EVACUANT DRINK 4,000 ML PDS PO ONE ×2 (15:00→17:00)
[2020-10-21] MEDS ORDERED: LIDOCAINE MPF 1% 10 MG/ML VIAL INJ PRN (15:20)
[2020-10-21] MEDS: VANCOMYCIN 1,000 MG in DEXTROSE 5% 250 ML IV SCH (15:32)
[2020-10-21] MEDS: ALGINATE DRESSING MC SCH (15:51)
[2020-10-21 16:00] VITALS: BP 154/80
--- NOTE | 2020-10-21 16:48 | NUR ---
DR NELSON GAVE TELEPHONE ORDER TO GIVE MORPHINE 4MG IVP X1 NOW AND ADDITIONAL NORCO PRN SCHEDULED, ORDER READ BACK CONFIRMED AND CARRIED OUT. DR NELSON WILL PERFORM BEDSIDE SACRAL DEBRIDEMENT.
[2020-10-21] MEDS ORDERED: MORPHINE SULFATE 4 MG/ML SYR IVP ONE (16:50)
[2020-10-21] MEDS: HYDROcodone/APAP 7.5/325 MG 1 TAB PO PRN (16:59)
--- NOTE | 2020-10-21 17:15 | NUR ---
DEBRIDEMENT SACROCOCCYX DECUBITUS GANGRENE DONE AT BEDSIDE BY DR NELSON. PATIENT TOLERATED WELL.
--- NOTE | 2020-10-21 18:07 | NUR ---
RECEIVED TELEPHONE ORDER FROM DR CARLIN TO INSERT FLEXISEAL TUBE. ORDER READ BACK, CONFIRMED AND CARRIED OUT. ROCIO STARTED.
--- NOTE | 2020-10-21 19:28 | NUR ---
ENDORSED PATIENT TO NIGHT NURSE. PATIENT IN STABLE CONDITION.
--- NOTE | 2020-10-21 19:29 | NUR ---
RECEIVING PATIENT FROM AM NURSE FOR CONTINUITY OF CARE. PATIENT IS IN TELE MONITOR. A/A/O X3. RESPIRATORY EVEN AND UNLABORED, ON 2L OXYGEN NC, O2 SAT 98%. NO SIGN OF RESPIRATORY DISTRESS NOTED. SKIN WARM, DRY, NON-DIAPHORETIC. SACRAL WOUND STAGE 4 AND LEFT HEEL WOUND UNSTAGED. IV ON LEFT FA 20G. G-TUBE IN PLACE, HOLD FOR UP COMING PROCEDURE. JACKSON IN PLACE, URINE CLEAR YELLOW. RECTAL TUBE IN PLACE. PATIENT DENIES ANY PAIN OR DISCOMFORT. ABLE TO MAKE NEEDS KNOWN. PLAN OF CARE DISCUSSED. PRECAUTION IN PLACE. HOB ELEVATED. CALL LIGHT WITHIN REACH. WILL CONTINUE TO MONITOR.
[2020-10-21 20:00] VITALS: BP 147/80
[2020-10-21] MEDS: ATORVASTATIN 20 MG TAB PO SCH (20:40)
[2020-10-21] MEDS ORDERED: CRUSHER, PILL MC ONE (21:00)
[2020-10-21] MEDS ORDERED: MAGNESIUM CITRATE 300 ML BTL PO ONE (21:00)
--- NOTE | 2020-10-21 21:05 | NUR ---
SCHEDULE MEDICATIONS GIVEN, EDUCATED PATIENT. PATIENT TOLERATED WELL. NO SIGN OF DISTRESS. CALL LIGHT WITHIN REACH. WILL CONTINUE TO MONITOR.
--- NOTE | 2020-10-21 22:00 | NUR ---
ROUND CHECK. PATIENT IS AWAKE, RESTING IN BED. NO SIGN OF DISTRESS NOTED. CALL LIGHT WITHIN REACH. HOB ELEVATED. PRECAUTION IN PLACE. WILL CONTINUE TO MONITOR.
[2020-10-22] VITALS: BP 142/89
--- NOTE | 2020-10-22 | NUR ---
ROUND CHECK. PATIENT IS SLEEPING, CHEST RISE AND FALL NOTED, O2 SAT 100%. NO SIGN OF DISTRESS. PRECAUTION IN PLACE. CALL LIGHT WITHIN REACH. WILL CONTINUE TO MONITOR.
[2020-10-22] MEDS: HYDRAGUARD CREAM TP SCH ×2 (01:00→13:00)
--- NOTE | 2020-10-22 02:00 | NUR ---
ROUND CHECK. PATIENT IS SLEEPING, CHEST RISE AND FALL NOTED, O2 SAT 100%. NO SIGN OF DISTRESS NOTED. HOB ELEVATED. PRECAUTION IN PLACE. CALL LIGHT WITHIN REACH. WILL CONTINUE TO MONITOR.
[2020-10-22 04:00] VITALS: BP 131/85
[2020-10-22] MEDS: PIPERACILLIN/TAZOBACTAM 3.375 GM in DEXTROSE 5% 50 ML IV SCH ×2 (05:04→13:00)
--- NOTE | 2020-10-22 05:48 | NUR ---
HELPED BIOLOGICAL ENGINEER TO RE-POSITION PATIENT. PATIENT HAD MINIMAL BOWEL MOVEMENT, STOOL IS SOLID. RECTAL TUBE IN PLACE. NO SIGN OF DISTRESS NOTED. PRECAUTION IN PLACE. HOB ELEVATED. CALL LIGHT WITHIN REACH. WILL CONTINUE TO MONITOR.
[2020-10-22 06:04] LABS: ANION GAP 14.8 (8-16); CARBON DIOXIDE 22.1 mmol/L (21-32); CHLORIDE 108 mmol/L (98-107); CREATININE 1.2 mg/dL (0.6-1.3); GLUCOSE 115 mg/dL (74-106); POTASSIUM 3.9 mmol/L (3.5-5.1); SODIUM SERUM 141 mmol/L (136-145); UREA NITROGEN, BLOOD 22 mg/dL (7-18)
[2020-10-22 06:08] LABS: BASOPHILS # (AUTO) 0.1 K/uL (0.00-0.22); BASOPHILS % (AUTO) 0.6 % (0.0-2.0); EOSINOPHILS # (AUTO) 0.5 K/uL (0-0.4); EOSINOPHILS % (AUTO) 3.2 % (0.0-4.0); HEMATOCRIT 33.2 % (36-52); HEMOGLOBIN 10.5 g/dL (12.0-18.0); LYMPHOCYTES # (AUTO) 1.2 K/uL (2.0-11.5); LYMPHOCYTES % (AUTO) 7.4 % (20.5-51.1); MEAN CORPUSCULAR HEMOGLOBIN 29 pg (27-31); MEAN CORPUSCULAR HGB CONC 32 g/dL (33-37); MEAN CORPUSCULAR VOLUME 91.7 fL (80-94); MONOCYTES # (AUTO) 1.1 K/uL (0.8-1.0); MONOCYTES % (AUTO) 6.6 % (1.7-9.3); NEUTROPHILS # (AUTO) 13.2 K/uL (1.8-7.7); NEUTROPHILS % (AUTO) 82.2 % (42.2-75.2); PLATELET COUNT (AUTO) 265 K/uL (140-450); RED BLOOD CELL COUNT(AUTO) 3.63 MIL/uL (4.20-6.10); RED CELL DISTRIBUTION WIDTH 16.8 % (11.6-13.7)
[2020-10-22] MEDS: POTASSIUM CHL 20 MEQ/D5-1/2NS 1,000 ML IV SCH (06:49)
--- NOTE | 2020-10-22 07:20 | NUR ---
ENDORSED PATIENT TO AM NURSE FOR CONTINUITY OF CARE. PATIENT IS STABLE.
[2020-10-22 08:00] VITALS: BP 153/84
--- NOTE | 2020-10-22 08:32 | NUR ---
PATIENT IN BED, AWAKE, ALERT AND ORIENTED X4. ON 3LPM VIA OPTIMIZER. NOTED JACKSON CATHETER DRAINING KARAN URINE, RECTAL TUBE NOT FUNCTIONING AT THIS TIME, WILL REASSESS. GT NOTED, INTACT. BED IN LOWEST POSITION. CALL LIGHT WITHIN EASY REACH.
[2020-10-22] MEDS ORDERED: MUPI2CRE22 NS (08:33)
[2020-10-22] MEDS ORDERED: CHLO118S2 TP (08:33)
[2020-10-22] MEDS ORDERED: VANC1FRO IV (08:33)
[2020-10-22] MEDS ORDERED: VITC500 PO (08:33)
[2020-10-22] MEDS ORDERED: PIPE50SO2 IV (08:33)
[2020-10-22] MEDS: LACTULOSE 20 GM/30 ML UDC PO SCH (09:44)
[2020-10-22] MEDS: ASCORBIC ACID 500 MG TAB PO SCH (09:45)
[2020-10-22] MEDS: POTASSIUM CHLORIDE 20% 40 MEQ/15 ML UDC GT SCH (09:45)
[2020-10-22] MEDS: SENNA 8.6 MG TAB PO SCH (09:45)
[2020-10-22] MEDS: HYDROcodone/APAP 7.5/325 MG 1 TAB PO PRN (09:46)
[2020-10-22] MEDS: ERYTHROMYCIN ETHYLSUCCINATE SUSP 200 MG/5 ML UDC PO SCH ×3 (09:46→17:00)
[2020-10-22] MEDS: MULTIVITAMIN/MINERALS 1 TAB PO SCH (09:46)
[2020-10-22 12:00] VITALS: BP 154/89
[2020-10-22] MEDS: GAUZE TP SCH (13:00)
--- NOTE | 2020-10-22 13:43 | NUR ---
22 GAUGE IV INSERTED TO RAC. PATIENT TOLERATED WELL. GOOD BLOOD RETURN NOTED. PATIENT TAKEN BY GI STAF FOR COLONOSCOPY. CHARGE NURSE ARNOL OWENS MADE AWARE
[2020-10-22] MEDS: CHLORHEXADINE GLUC 2% CLOTH TP SCH (14:00)
[2020-10-22] MEDS ORDERED: MIDAZOLAM 5 MG/5 ML VIAL ONE (14:24)
[2020-10-22] MEDS ORDERED: fentaNYL citrate 0.05 MG/ML VIAL ONE (14:24)
[2020-10-22] MEDS ORDERED: diphenhydrAMINE 50 MG/ML VIAL ONE (14:24)
[2020-10-22] MEDS: fentaNYL citrate 0.05 MG/ML VIAL IVP ONE ×2 (14:39→16:23)
[2020-10-22] MEDS: MIDAZOLAM 2 MG/2 ML VIAL IVP ONE ×2 (14:40→16:24)
[2020-10-22] MEDS: ALGINATE DRESSING MC SCH (15:00)
[2020-10-22] MEDS ORDERED: LACTULOSE 20 GM/30 ML UDC PO SCH (15:35)
--- NOTE | 2020-10-22 15:38 | NUR ---
10/22/20 RD FOLLOW UP COMPLETED PLEASE REFER TO NUTRITION ASSESSMENT UNDER CARE ACTIVITY FOR ESTIMATED NUTRITIONAL NEEDS. 1. CURRENTLY NPO 2. IF/WHEN MEDICALLY CLEARED CONTINUE GLUCERNA 1.2 @ 80 ML/HR. START AT 60 ML/HR AND ADVANCE BY 20 ML/HR Q4H -THIS WILL PROVIDE 1920 ML OF VOLUME, 2304 KCAL AND 115 GM OF PROTEIN, MEETING 100% OF ESTIMATED KCAL AND PROTEIN NEEDS 3. CONTINUE FREE WATER FLUSH OF 125 ML Q4H 4. CONTINUE MVI WITH VITAMIN C TO PROMOTE WOUND HEALING 5. RD TO FOLLOW-UP 2-3 DAYS, HIGH RISK FATOU VARGAS RD
--- NOTE | 2020-10-22 15:46 | NUR ---
PATIENT BROUGHT BACK TO UNIT VIA BED AT THIS TIME S/P COLONOSCOPY.
[2020-10-22 16:00] VITALS: BP 138/46
[2020-10-22] MEDS ORDERED: MUPIROCIN CA NASAL 2% 1GM TUBE NS ONE (16:05)
[2020-10-22] MEDS: MUPIROCIN CA NASAL 2% 1GM TUBE NS SCH (16:12)
[2020-10-22] MEDS: VANCOMYCIN 1,000 MG in DEXTROSE 5% 250 ML IV SCH (16:13)
--- NOTE | 2020-10-22 17:00 | NUR ---
REPORT GIVEN TO YUDY OF [facility], AWARE THAT PATIENT TO BE PICKED UP BY [facility] AT 1730.
--- NOTE | 2020-10-22 17:57 | NUR ---
PATIENT SACRAL WOUND CARE DONE.PICTURES TAKEN WITH HELP FROM NURSE MAVIS AGUILAR. PATIENT PICKED UP BY [facility] AT 1730, JACKSON CATHETER ANG GTUBE INTACT AND PATENT.
[2020-10-22] MEDS ORDERED: AMITRIPTYLINE 25 MG TAB PO SCH (21:00)
== END 2020-10-22 17:50 | disposition hospice, home (50) | DRG 853 ==
LOC: MED 22:48 → MMU 10-17 02:57
PROVIDERS: ADMIT Family Medicine; ATTEND Family Medicine
PROC: 0DB68ZZ Excision of Stomach, Via Natural or Artificial Opening Endoscopic (ICD-10-PCS; 2020-10-18)
PROC: 0DH63UZ Insertion of Feeding Device into Stomach, Percutaneous Approach (ICD-10-PCS; 2020-10-18)
PROC: 0DB98ZZ Excision of Duodenum, Via Natural or Artificial Opening Endoscopic (ICD-10-PCS; 2020-10-18 14:40)
PROC: 0JB70ZZ Excision of Back Subcutaneous Tissue and Fascia, Open Approach (ICD-10-PCS; principal; 2020-10-21)
PROC: 0DBH8ZZ Excision of Cecum, Via Natural or Artificial Opening Endoscopic (ICD-10-PCS; 2020-10-22)
PROC: 0DBL8ZZ Excision of Transverse Colon, Via Natural or Artificial Opening Endoscopic (ICD-10-PCS; 2020-10-22)
PROC: 0DBF8ZZ Excision of Right Large Intestine, Via Natural or Artificial Opening Endoscopic (ICD-10-PCS; 2020-10-22)
DX: A41.9 Sepsis, unspecified organism (principal); L89.154 Pressure ulcer of sacral region, stage 4; N17.0 Acute kidney failure with tubular necrosis; E43 Unspecified severe protein-calorie malnutrition; G93.41 Metabolic encephalopathy; N39.0 Urinary tract infection, site not specified; I96 Gangrene, not elsewhere classified; K62.6 Ulcer of anus and rectum; N13.8 Other obstructive and reflux uropathy; Z20.822 Contact with and (suspected) exposure to COVID-19; D64.9 Anemia, unspecified; E78.5 Hyperlipidemia, unspecified; E83.39 Other disorders of phosphorus metabolism; E83.41 Hypermagnesemia; E86.0 Dehydration; E87.5 Hyperkalemia; F41.9 Anxiety disorder, unspecified; G20 Parkinson's disease; K31.7 Polyp of stomach and duodenum; K56.41 Fecal impaction; K63.5 Polyp of colon; K64.9 Unspecified hemorrhoids; N20.0 Calculus of kidney; N40.1 Benign prostatic hyperplasia with lower urinary tract symptoms; R13.10 Dysphagia, unspecified; R62.7 Adult failure to thrive; N18.9 Chronic kidney disease, unspecified; F02.80 Dementia in other diseases classified elsewhere, unspecified severity, without behavioral disturbance, psychotic disturbance, mood disturbance, and anxiety; Z68.22 Body mass index [BMI] 22.0-22.9, adult; I12.9 Hypertensive chronic kidney disease with stage 1 through stage 4 chronic kidney disease, or unspecified chronic kidney disease; L89.626 Pressure-induced deep tissue damage of left heel; B96.4 Proteus (mirabilis) (morganii) as the cause of diseases classified elsewhere; E87.6 Hypokalemia; K52.9 Noninfective gastroenteritis and colitis, unspecified; Z86.718 Personal history of other venous thrombosis and embolism; Z74.01 Bed confinement status; Z79.899 Other long term (current) drug therapy; Z79.01 Long term (current) use of anticoagulants
CPT/HCPCS: 36415; 71045; 74018; 76770; 80048; 80053; 81001; 82150; 83036; 83605; 83690; 83735; 83880; 84100; 84436; 84439; 84443; 84479; 84484; 85025; 85610; 85730; 87040; 87081; 87086; 93005; 97110; 97163-GP; 97530; 99291; 99292; A4649; J0610; J0696; J1200; J1364; J1644; J1815; J2001; J2250; J2270; J2543; J3010; J3370; J7030; J7042; J7060